=== PATIENT | female | born 1975 | race American Indian/Alaskan Native ===

== ENCOUNTER 2022-01-16 09:02 | Outpatient (CLI) | payer OTHER ==
--- NOTE | 2022-01-16 10:22 | XRay Report ---
LEFT HAND 2 VIEWS 0956 INDICATION: Left hand pain COMPARISON: None available. FINDINGS: There is prominent deformity of the distal portion of the third metacarpal from the distal shaft to distal and at the metacarpophalangeal joint. Expansion and lucency is noted in the central p ortion of this area. Tiny calcific densities are noted in the joint. No obvious acute fracture is nilda ntified. No dislocation is seen. The base of the proximal phalanx of the third digit at the metacarpo phalangeal joint appears normal without obvious evidence of arthritic change in that portion of the j oint. There is slight deformity of the proximal portion of the shaft of the third metacarpal. No othe r fractures or dislocations are seen. IMPRESSION: Deformity of the distal third metacarpal as above. Probably this is due to old fracture w ith a superimposed process such as avascular necrosis. Reviewed with a musculoskeletal radiologist. THORACIC SPINE 2 VIEWS 0953 INDICATION: BACK PAIN COMPARISON: None available. FINDINGS: Moderate thoracolumbar scoliosis. Mild diffuse degenerative changes. No fractures or sublux ations are obvious. Extreme upper thoracic spine spine is seen in low detail on lateral view. Signer Name: Wilfred Gibson MD Signed: 01/16/2022 10:18 AM Workstation Name: [id number]
== END 2022-01-16 09:03 | disposition home or self-care (01) ==
LOC: XRAY 09:02
PROVIDERS: ATTEND Internal Medicine
DX: M41.85 Other forms of scoliosis, thoracolumbar region (principal); M47.817 Spondylosis without myelopathy or radiculopathy, lumbosacral region; M79.642 Pain in left hand
CPT/HCPCS: 72070